=== PATIENT | male | born 1945 | race Caucasian/White ===

== ENCOUNTER 2017-09-09 10:07 | Day surgery (SDC) | payer OTHER, BC ==
[2017-09-04 13:32] VITALS: BMI 33.5
[2017-09-09] MEDS ORDERED: PROPOFOL 20 ML ONE (10:21)
[2017-09-09 11:49] VITALS: TEMP 97.6
[2017-09-09 12:12] VITALS: BP 137/65; PULSE 69
--- NOTE | 2017-09-10 18:02 | PATH ---
Surgical Pathology Report Patient Name: KESHA CHUN [facility]. Rec. #: [id number] /Age/Gender: 1945 (Age: 72) / M Account: [id number] Location: [facility] Taken: 09/09/2017 Received: 09/09/2017 Reported: 09/10/2017 Physicians: Tai Jimenes M.D. Specimen(s) Received A: BX CECUM B: SPLENIC FLEXURE C: RIGHT COLON Clinical History History of polyps Postoperative diagnosis: Polyps Final Diagnosis A. CECUM, BIOPSY: TUBULAR ADENOMA(S). B. COLON, SPLENIC FLEXURE, BIOPSY: TUBULAR ADENOMA. C. COLON, RIGHT, BIOPSY: TUBULAR ADENOMA. Electronically Signed Patti Dillon M.D. Gross Description A. Received in formalin, labeled "cecum" are 2 capellan, irregular portions of soft tissue measuring 0.2 and 0.6 cm. in greatest dimension. The specimens are submitted in toto in one cassette. B. Received in formalin, labeled "splenic flexure" is a capellan, irregular portion of soft tissue measuring 0.3 cm. in greatest dimension. The specimen is submitted in toto in one cassette. C. Received in formalin, labeled "right colon" is a capellan, polypoid portion of soft tissue measuring 0.7 cm. in greatest dimension. The specimen is submitted in toto in one cassette. 09/09/2017 saudi09/09/2017
== END 2017-09-09 12:15 | disposition home or self-care (01) ==
LOC: FASU-ENDO 10:07
PROVIDERS: ATTEND Internal Medicine Gastroenterology
PROC: 0DBL8ZX Excision of Transverse Colon, Via Natural or Artificial Opening Endoscopic, Diagnostic (ICD-10-PCS; 2017-09-09)
PROC: 0DBK8ZX Excision of Ascending Colon, Via Natural or Artificial Opening Endoscopic, Diagnostic (ICD-10-PCS; principal; 2017-09-09 11:11)
PROC: 0DBH8ZX Excision of Cecum, Via Natural or Artificial Opening Endoscopic, Diagnostic (ICD-10-PCS; 2017-09-09 11:11)
DX: Z12.11 Encounter for screening for malignant neoplasm of colon (principal); Z80.0 Family history of malignant neoplasm of digestive organs; D12.0 Benign neoplasm of cecum; D12.2 Benign neoplasm of ascending colon; D12.3 Benign neoplasm of transverse colon
CPT/HCPCS: 82962; 88305-TC

== ENCOUNTER 2018-04-24 18:02 | Inpatient (IN) | payer OTHER, BC ==
--- NOTE | 2018-04-24 18:28 | PDOC ---
History of Present Illness - General Chief Complaint: Weakness Stated Complaint: weakness in legs Time Seen by Provider: 04/24/18 18:10 History Source: Patient Exam Limitations: No Limitations - History of Present Illness Initial Comments: 72 yo M w a hx of DM, kidney stones s/p lithotripsy, neuropathy in LE > UE, HTN , waldenstrom macroglobulinemia, BPH presents to the ER with sudden onset bilateral leg weakness which he states began today and has been progressively getting worse for the past 3 hours. There was a point when he thought he could not possible move his legs or walk. He has a history of multiple spinal surgeries. He states his legs are both numb and he has lost a significant amount of feeling today. When he woke up this morning he states he was able to walk and feel his legs with significantly more ease than he is currently able to. Denies recent fevers, chills, infections, chest pain, SOB, difficulty breathing , headache, blurry vision, nausea, vomiting, dysuria, frequency, urgency, diarrhea, constipation. PSH: Multiple spinal surgeries, 5 years apart. Patient is unsure exactly which surgeries he had PCP: Dr. Rm Oncologist: Dr. Robison Neurologist: Dr. Kim Neuro-Surgeon: Dr. Hercules. Allergies: Cat dander Social Hx: Denies smoking, drinking or illicit substances. Past History - Past Medical History Allergies/Adverse Reactions: Allergies Allergy/AdvReac Type Severity Reaction Status Date / Time cat dander Allergy Intermediate Verified 04/24/18 18:19 No Known Drug Allergies Allergy Verified 04/24/18 18:19 Home Medications: Ambulatory Orders Aspirin [Aspir-Low] 81 mg PO HS tablet 10/21/13 Cholecalciferol (Vitamin D3) [Vitamin D3] 2,000 unit PO DAILY capsule 10/17/15 Famotidine 20 mg PO HS 09/04/17 Omeprazole 40 mg PO DAILY 09/04/17 Glipizide/Metformin HCl [Glipizide-Metformin 5-500 mg] 2.5 each PO BID 04/24/18 Lisinopril 20 mg PO BID 04/24/18 Metoprolol Succinate [Toprol Xl] 100 mg PO BID 04/24/18 Anemia: No Asthma: No Cancer: No Cardiac Disorders: No CVA: No COPD: No CHF: No Dementia: No Diabetes: Yes (2007) GI Disorders: No Disorders: Yes (ENLARGED PROSTATE) HTN: Yes Hypercholesterolemia: Yes Liver Disease: Yes Seizures: No Thyroid Disease: No - Surgical History Abdominal Surgery: No Appendectomy: No Cardiac Surgery: No Cholecystectomy: No Lung Surgery: No Neurologic Surgery: No Orthopedic Surgery: Yes (Cervical Discectomy,Laminectomy with Instrumentation) - Immunization History Td Vaccination: No (UNKNOWN) Immunization Up to Date: No - Suicide/Smoking/Psychosocial Hx Smoking Status: No Smoking History: Never smoked Have you smoked in the past 12 months: No Number of Cigarettes Smoked Daily: 0 Hx Alcohol Use: No Drug/Substance Use Hx: No Substance Use Type: None Hx Substance Use Treatment: No Review of Systems - Review of Systems Able to Perform ROS?: Yes Comments:: CONSTITUTIONAL: Absent: fever, no chills, no fatigue EYES: Absent: visual changes ENT: Absent: ear pain, no sore throat CARDIOVASCULAR: Absent: chest pain, no palpitations RESPIRATORY: Absent: cough, no SOB GI: Absent: abdominal pain, no nausea, no vomiting, no constipation, no diarrhea GENITOURINARY: Absent: dysuria, no frequency, no hematuria MUSKULOSKELETAL: Present: Back pain Absent: no arthralgia, no myalgia SKIN: Absent: rash NEURO: Absent: headache *Physical Exam - Physical Exam Comments: GENERAL: Well-appearing, well-nourished. No apparent distress. HEENT: Normocephalic, atraumatic. PERRL, EOM intact. CARDIOVASCULAR: Normal S1, S2. Regular rate and rhythm. PULMONARY: Clear to auscultation bilaterally. ABDOMEN: Soft, non-distended, non-tender. EXTREMITIES: Limited strength in bilateral lower extremities. Numbness in b/l lower legs. strength is 4/5 in both legs. Normal ROM in all upper extremities. No gross deformities. SKIN: Warm, dry. No rash NEUROLOGICAL: No focal neurological deficits. ED Treatment Course - LABORATORY CBC & Chemistry Diagram: 04/24/18 18:56 04/24/18 18:56 - RADIOLOGY Radiology Studies Ordered: Category Date Time Status LUMBAR SPINE MRI W/O CONTRAST [MRI] Stat MRI 04/24/18 18:23 Ordered Medical Decision Making - Medical Decision Making 72 yo M w a hx of DM, kidney stones s/p lithotripsy, neuropathy in LE > UE, HTN , waldenstrom macroglobulinemia, BPH presents to the ER with sudden onset bilateral leg weakness which he states began today and has been progressively getting worse for the past 3 hours. - oral fever elevated to 99.8 DDx IBNLT: Cauda equina, spinal epidural abscess, metastatic leasion compression spine, herniated disc, muscle sprain. Plan: Rectal temperature, labs, Spinal MRI, re-assess. - will give patient something to help him relax in the MRI machine because he gets claustrophobic. - Signing patient out to night team. *DC/Admit/Observation/Transfer Diagnosis at time of Disposition: Lower extremity weakness Qualifiers: Laterality: bilateral Qualified Code(s): R29.898 - Other symptoms and signs involving the musculoskeletal system - Referrals - Patient Instructions - Post Discharge Activity
--- NOTE | 2018-04-24 18:37 | PDOC ---
Attending Attestation - Resident Resident Name: Toi Almendarez - HPI HPI: 04/24/18 18:52 Pt presents to the Ed complaining of sudden onset bilateral leg weakness. STates that he was sitting in a chair and found himself unable to get up. Denies pain. Denies other complaints. states that weakness has improved somewhat but not resolved. Denies fever, bowel or bladder complaints. 04/26/18 18:31 - Physicial Exam PE: 04/26/18 18:33 Agree with resident exam. Patient is alert and oriented x 3 and in no acute distress. intact great toe extension, but decreased strength of his leg raise. Able to ambulate but with some difficultyl 04/26/18 18:34 - Medical Decision Making 04/26/18 18:34 PT presents to the ED complaining of sudden onset bilateral leg weakness. Strength is only slightly decreased on exam, but given his history and the history of malignancy, plan was for MRI of the lumbar spine to rule out cord compression. WIll reassess after MRI. 04/26/18 18:35
[2018-04-24] MEDS ORDERED: MIDAZOLAM HCL 2 MG/2 ML SINGLE DOSE VIAL IVPUSH ONE (19:06)
[2018-04-24 19:17] LABS: EOS % 0.2 % (0-4.5); MONO % 12.7 % (3.8-10.2); RBC 4.56 M/mm3 (4.00-5.60)
[2018-04-24 19:19] LABS: ACTIVATED PTT 25.3 SECONDS (25.2-36.5)
[2018-04-24 19:20] LABS: BASO % 0.2 % (0-2.0); HEMATOCRIT 41.3 % (35.4-49); HEMOGLOBIN 13.8 GM/dl (11.7-16.9); LYMPH % 3.6 % (8-40); MCH 30.3 pg (25.7-33.7); MCHC 33.4 g/dl (32.0-35.9); MEAN CELL VOLUME 90.6 fl (80-96); MEAN PLT VOLUME 8.8 fl (7.5-11.1); NEUT % 83.3 % (42.8-82.8); PLATELET COUNT 233 K/MM3 (134-434); RDW 12.5 % (11.9-15.9); WHITE BLOOD COUNT 10.6 K/mm3 (4.0-10.8)
[2018-04-24 19:21] LABS: ALBUMIN 3.4 g/dl (3.5-5.0); ALK PHOS 82 U/L (32-92); ANION GAP 5 MMOL/L (8-16); BILIRUBIN,TOTAL 0.8 mg/dl (0.2-1.0); BLOOD UREA NITROGEN 14 mg/dl (7-18); CALCIUM 8.6 mg/dl (8.4-10.2); CHLORIDE 106 mmol/L (98-107); CO2 22 mmol/L (22-28); CREATININE 0.9 mg/dl (0.6-1.3); GLUCOSE,RANDOM 231 mg/dl (74-106); POTASSIUM 3.9 mmol/L (3.5-5.1); SGOT/AST 28 U/L (10-42); SGPT/ALT 26 U/L (10-40); SODIUM 133 mmol/L (136-145); TOT PROT 6.7 g/dl (6.4-8.3)
[2018-04-24 19:23] LABS: INR 1.32 (0.82-1.09); PROTHROMBIN TIME (PATIENT) 14.7 SEC (10.2-13.0)
[2018-04-24] MEDS ORDERED: MIDAZOLAM HCL 2 MG/2 ML SINGLE DOSE VIAL ONE (19:41)
--- NOTE | 2018-04-24 19:48 | PDOC ---
*Physical Exam - Vital Signs Last Vital Signs Temp Pulse Resp BP Pulse Ox 99.8 F H 113 H 19 170/93 92 L 04/24/18 18:05 04/24/18 18:05 04/24/18 18:05 04/24/18 18:05 04/24/18 18:05 ED Treatment Course - LABORATORY CBC & Chemistry Diagram: 04/24/18 18:56 04/24/18 18:56 - ADDITIONAL ORDERS Additional order review: Laboratory Results 04/24/18 04/24/18 18:56 18:56 PT with INR 14.7 H INR 1.32 H PTT (Actin FS) 25.3 Sodium 133 L Potassium 3.9 Chloride 106 Carbon Dioxide 22 Anion Gap 5 L BUN 14 Creatinine 0.9 Creat Clearance w eGFR > 60 Random Glucose 231 H D Calcium 8.6 Total Bilirubin 0.8 AST 28 D ALT 26 D Alkaline Phosphatase 82 Total Protein 6.7 Albumin 3.4 L 04/24/18 18:56 RBC 4.56 MCV 90.6 MCHC 33.4 RDW 12.5 MPV 8.8 Neutrophils % 83.3 H Lymphocytes % 3.6 L D Monocytes % 12.7 H Eosinophils % 0.2 D Basophils % 0.2 Medical Decision Making - Medical Decision Making 04/24/18 23:31 Emergent MRI shows no evidence of cord compression or cauda equina. There is severe spinal stenosis at L23 above the level of fusion(L3-4) there is also circumferential disc bulge at L2-3 with a broad-based posterior disc component extending into the right neural outlet Patient denies pain at this time. He presented with complaints of bilateral lower extremity weakness; although it is difficult to demonstrate actual weakness on exam, the patient's ability to ambulate is currently severely compromised. Therefore, admission for further evaluation and treatment including gait training/physical therapy is required. Patient's PMD is [facility] regarding admission 04/25/18 00:12 Case discussed with . Patient admitted under observation status. 12-lead electrocardiogram performed and luminary interpretation: Sinus tachycardia 112 bpm; axis, intervals and wave forms are all normal. There are occasional PACs; otherwise no cardiac arrhythmia present. No evidence of acute ST or T-wave abnormalities. Portable chest x-ray reveals no evidence of infiltrates/effusion/masses *DC/Admit/Observation/Transfer Diagnosis at time of Disposition: Lower extremity weakness Qualifiers: Laterality: bilateral Qualified Code(s): R29.898 - Other symptoms and signs involving the musculoskeletal system - Discharge Dispostion Decision to Admit order: Yes - Referrals - Patient Instructions - Post Discharge Activity
[2018-04-24] MEDS ORDERED: LORazepam 1 MG TABLET PO ONE (19:49)
[2018-04-24] MEDS ORDERED: LORazepam 0.5 MG TABLET ONE (19:54)
[2018-04-24] MEDS ORDERED: LISINOPRIL 20 MG TABLET (FP) PO ONE (23:46)
[2018-04-24] MEDS ORDERED: LISINOPRIL 5 MG TABLET (FP) ONE (23:56)
[2018-04-25] MEDS ORDERED: ACETAMINOPHEN 325 MG TABLET (FP) PO ONE (00:48)
[2018-04-25 01:18] VITALS: BMI 36.2
[2018-04-25 01:59] LABS: URINE APPEARANCE CLEAR; URINE BILIRUBIN NEGATIVE (<2.0 mg/dL); URINE COLOR YELLOW; URINE GLUCOSE (UA) 1+ (NEGATIVE); URINE KETONE 1+ (NEGATIVE); URINE LEUK ESTERASE NEGATIVE (NEGATIVE); URINE NITRITE NEGATIVE (NEGATIVE); URINE PROTEIN 3+ (NEGATIVE); URINE UROBILINOGEN NEGATIVE mg/dL (0.2-1.0)
[2018-04-25 02:05] LABS: EPI CELLS RARE /HPF (FEW); URINE HYALINE CAST 1 /lpf; URINE MUCUS RARE
[2018-04-25] MEDS ORDERED: DEXAMETHASONE SOD PHOSPHATE 4 MG/1 ML VIAL IVPB ONE (02:40)
[2018-04-25] MEDS ORDERED: VANCOMYCIN 1 GRAM (PRE-DOCKED) 1,000 MG/250 ML BAG IVPB ONE (02:41)
[2018-04-25] MEDS ORDERED: PIPERACILLIN/TAZOB 3.375 GM 3.375 GM in DEXTROSE 5%-WATER - 50 ML IVPB ONE ×2 (02:41→11:00)
[2018-04-25] MEDS ORDERED: IBUPROFEN 400 MG TABLET (FP) PO PRN (02:42)
[2018-04-25] MEDS ORDERED: DEXTROSE 5%-WATER - 50 ML IVPB ONE ×2 (02:47→10:42)
[2018-04-25] MEDS ORDERED: PIPERACILLIN/TAZOBACTAM 3.375 GM VIAL IVPB ONE ×2 (02:47→10:41)
[2018-04-25] MEDS ORDERED: ACETAMINOPHEN 500 MG TABLET (FP) PO PRN (02:54)
[2018-04-25 07:55] LABS: HEMATOCRIT 39.6 % (35.4-49); HEMOGLOBIN 12.9 GM/dl (11.7-16.9); MCH 29.7 pg (25.7-33.7); MCHC 32.7 g/dl (32.0-35.9); MEAN CELL VOLUME 90.9 fl (80-96); MEAN PLT VOLUME 9.1 fl (7.5-11.1); PLATELET COUNT 212 K/MM3 (134-434); RBC 4.35 M/mm3 (4.00-5.60); WHITE BLOOD COUNT 7.6 K/mm3 (4.0-10.8)
[2018-04-25] MEDS ORDERED: SODIUM CHLORIDE 1,000 ML IV STA ×2 (08:00→08:34)
[2018-04-25 08:13] LABS: ANION GAP 10 MMOL/L (8-16); BLOOD UREA NITROGEN 16 mg/dl (7-18); CALCIUM 8.6 mg/dl (8.4-10.2); CHLORIDE 100 mmol/L (98-107); CO2 22 mmol/L (22-28); GLUCOSE,RANDOM 275 mg/dl (74-106); SODIUM 132 mmol/L (136-145)
--- NOTE | 2018-04-25 08:20 | HP ---
CHIEF COMPLAINT: Lower extremity weakness PCP: Dr. Rm Oncologist: Dr. Robison Neurologist: Dr. Kim Neuro-Surgeon: Dr. Hercules HISTORY OF PRESENT ILLNESS: 72 year-old male with a PMH signifiant for HTN, HLD, NIDDM, nephrolithiasis, BPH , b/l lower extremity neuropathy, and Waldenstrom's macroglobulinemia. Patient presented to the ED last night with a complaint of b/l lower extremity weakness so severe as he was unable to walk. Patient reports he started feeling unwell about 48 hours ago. On Saturday he was out with a friend and had an episode of feeling very warm and thought he might have a fever. He also started coughing and had a headache associated with the cough. On patient was able to do his errands in the morning. He came home and sat in his lounger chair for a time. When he went to get up he could not move his legs and he could not lift himself. He sat for a time and again tried to get up but could not. His helped him up and he had to hold on to furniture to ambulate. called EMS. Both and patient state this episode of profound weakness was very unusual. At baseline patient is able to walk unassisted although his neuropathy leads to some gait instability and imbalance. He drives a car. Patient denies incontinence of urine or stool. He denies nausea, vomiting, diarrhea. He denies dysuria although has frequency secondary to his BPH. ER course was notable for: (1) T 102.8, p 113 (2) CXR: prominent mediastinum (3) Dexamethasone 10mg x 1; lisinopril 20mg x 1; Toprol XL 100mg x 1; Vanc x 1; Zosyn x 1 Recent Travel: No PAST MEDICAL HISTORY: Hypertension Hyperlipidemia NIDDM Nephrolithiasis Enlarged prostate Neuropathy LE>UE Waldenstrom's macroglobulinemia PAST SURGICAL HISTORY: Cervical fusion, corpectomy, metallic cage C4, C5, C6, C7 (2005) Lumbar fusion with rods and screws L3, L4 (2011) Lithotripsy Social History: lives with Smoking: no Alcohol: no Drugs: no Family History: Allergies cat dander Allergy (Intermediate, Verified 04/24/18 18:19) No Known Drug Allergies Allergy (Verified 04/24/18 18:19) HOME MEDICATIONS: Home Medications Medication Instructions Recorded Aspirin [Aspir-Low] 81 mg PO HS tablet 10/21/13 Cholecalciferol (Vitamin D3) 2,000 unit PO DAILY capsule 10/17/15 [Vitamin D3] Famotidine 20 mg PO HS 09/04/17 Omeprazole 40 mg PO DAILY 09/04/17 Glipizide/Metformin HCl 2.5 each PO BID 04/24/18 [Glipizide-Metformin 5-500 mg] Lisinopril 20 mg PO BID 04/24/18 Metoprolol Succinate [Toprol Xl] 100 mg PO BID 04/24/18 REVIEW OF SYSTEMS CONSTITUTIONAL: +subjective fever Absent: chills, diaphoresis, generalized weakness, malaise, loss of appetite, weight change HEENT: Absent: rhinorrhea, nasal congestion, throat pain, throat swelling, difficulty swallowing, mouth swelling, ear pain, eye pain, visual changes CARDIOVASCULAR: Absent: chest pain, syncope, palpitations, irregular heart rate, lightheadedness , peripheral edema RESPIRATORY: +cough Absent: shortness of breath, dyspnea with exertion, orthopnea, wheezing, stridor , hemoptysis GASTROINTESTINAL: Absent: abdominal pain, abdominal distension, nausea, vomiting, diarrhea, constipation, melena, hematochezia GENITOURINARY: Absent: dysuria, frequency, urgency, hesitancy, hematuria, flank pain, genital pain MUSCULOSKELETAL: Absent: myalgia, arthralgia, joint swelling, back pain, neck pain SKIN: Absent: rash, itching, pallor HEMATOLOGIC/IMMUNOLOGIC: Absent: easy bleeding, easy bruising, lymphadenopathy, frequent infections ENDOCRINE: Absent: unexplained weight gain, unexplained weight loss, heat intolerance, cold intolerance NEUROLOGIC: +headache when coughing, b/l lower extremity weakness Absent: dizziness, unsteady gait, seizure, mental status changes, bladder or bowel incontinence PSYCHIATRIC: Absent: anxiety, depression, suicidal or homicidal ideation, hallucinations. PHYSICAL EXAMINATION Vital Signs - 24 hr 04/24/18 04/24/18 04/24/18 18:05 21:00 23:44 Temperature 99.8 F H 99.1 F Pulse Rate 113 H Pulse Rate [ 116 H Right Radial] Respiratory 19 22 H Rate Blood Pressure 170/93 Blood Pressure 164/94 [Left Arm] O2 Sat by Pulse 92 L 98 95 Oximetry (%) GENERAL: Awake, alert, and fully oriented, in no acute distress. HEAD: Normal with no signs of trauma. EYES: Pupils equal, round and reactive to light, extraocular movements intact, sclera anicteric, conjunctiva clear. No lid lag. EARS, NOSE, THROAT: Ears normal, nares patent, oropharynx clear without exudates. Dry mucous membranes LUNGS: Breath sounds equal, clear to auscultation bilaterally. No wheezes, and no crackles. No accessory muscle use. HEART: Regular rate and rhythm, S1 and S2 ABDOMEN: Obese soft, diffuse lower abdominal tenderness right and left, normoactive bowel sounds, no guarding, no rebound tenderness MUSCULOSKELETAL: No CVA tenderness. UPPER EXTREMITIES: 2+ pulses, warm, well-perfused. No cyanosis. No clubbing. No peripheral edema. LOWER EXTREMITIES: 2+ pulses, warm, well-perfused. No calf tenderness. No peripheral edema. 5/5 motor b/l LE, SLR 45 degress on left, 30 degrees on right ; 5/5 sensory bilaterally NEUROLOGICAL: Cranial nerves II-XII intact. Normal speech. Able to stand and walk few steps without assistance PSYCHIATRIC: Cooperative. Good eye contact. Appropriate mood and affect. SKIN: Warm, dry, normal turgor Laboratory Results - last 24 hr 04/24/18 04/24/18 04/24/18 18:56 18:56 18:56 WBC 10.6 RBC 4.56 Hgb 13.8 Hct 41.3 MCV 90.6 MCH 30.3 MCHC 33.4 RDW 12.5 Plt Count 233 MPV 8.8 Absolute Neuts (auto) 8.8 Neutrophils % 83.3 H Lymphocytes % 3.6 L D Monocytes % 12.7 H Eosinophils % 0.2 D Basophils % 0.2 PT with INR 14.7 H INR 1.32 H PTT (Actin FS) 25.3 Sodium 133 L Potassium 3.9 Chloride 106 Carbon Dioxide 22 Anion Gap 5 L BUN 14 Creatinine 0.9 Creat Clearance w eGFR > 60 Random Glucose 231 H D Calcium 8.6 Total Bilirubin 0.8 AST 28 D ALT 26 D Alkaline Phosphatase 82 Total Protein 6.7 Albumin 3.4 L Urine Color Urine Appearance Urine pH Ur Specific [place] Urine Protein Urine Glucose (UA) Urine Ketones Urine Blood Urine Nitrite Urine Bilirubin Urine Urobilinogen Ur Leukocyte Esterase Urine WBC (Auto) Urine RBC (Auto) Ur Epithelial Cells Hyaline Casts Urine Mucus 04/25/18 01:00 WBC RBC Hgb Hct MCV MCH MCHC RDW Plt Count MPV Absolute Neuts (auto) Neutrophils % Lymphocytes % Monocytes % Eosinophils % Basophils % PT with INR INR PTT (Actin FS) Sodium Potassium Chloride Carbon Dioxide Anion Gap BUN Creatinine Creat Clearance w eGFR Random Glucose Calcium Total Bilirubin AST ALT Alkaline Phosphatase Total Protein Albumin Urine Color Yellow Urine Appearance Clear Urine pH 5.0 Ur Specific [place] 1.024 Urine Protein 3+ H Urine Glucose (UA) 1+ H Urine Ketones 1+ H Urine Blood 2+ H Urine Nitrite Negative Urine Bilirubin Negative Urine Urobilinogen Negative Ur Leukocyte Esterase Negative Urine WBC (Auto) 1 Urine RBC (Auto) 1 Ur Epithelial Cells Rare Hyaline Casts 1 Urine Mucus Rare ASSESSMENT/PLAN 72 year-old male with a PMH significant for HTN, HLD, NIDDM, nephrolithiasis, BPH, b/l lower extremity neuropathy, and Waldenstrom's macroglobulinemia. Admitted with fever and LE weakness. Severe sepsis DASIA pneumonia --Tm 102.8, p 113, drop in BP >50 mmHg systolic over 4 hours --CT chest: DASIA patchy consolidation c/w pneumonia --fluid bolus 2L; maintain MAP>65 --vanc (day #1) and cefepime (day #1), Tamiflu (day #1) --cultures pending; flu swab pending --ID following Waldenstrom's macroglobulinemia --discussed with Dr. Robison; will get SPEP, quantitative immunoglobulins, LDH Bilateral lower extremity neuropathy --has some gait instability at baseline, but this episode of profound weakness is very unusual, has not experienced this since before his last back surgery --MRI lumbar spine: (1) L2-L3 moderate to marked DDD with mild broad-based disc bulge, possible slight impingement L2 nerve root; L4-L5 mild bilateral lateral disc bulge possible slight impingement L4 nerve root; L5-S1 disc bulge without definite impingement --MRI cervical spine ordered --neuro consult pending Hypertension --hypotensive, hold lisinopril and metoprolol Hyperlipidemia --continue atorvastatin NIDDM --Novolog sliding scale coverage Nephrolithiasis --no acute issues BPH --continue finasteride FEN Fluids: NS@100mL/hr Electrolytes: replete as indicated Nutrition: diabetic, low sodium DVT prophylaxis: subq heparin Physical therapy Dispo: continues to require inpatient care. Full code. Visit type - Emergency Visit Emergency Visit: Yes ED Registration Date: 04/24/18 Care time: The patient presented to the Emergency Department on the above date and was hospitalized for further evaluation of their emergent condition. - New Patient This patient is new to me today: Yes Date on this admission: 04/25/18 - Critical Care Critical Care patient: No
[2018-04-25] MEDS ORDERED: LISINOPRIL 20 MG TABLET (FP) PO SCH ×2 (10:00)
--- NOTE | 2018-04-25 10:54 | PN ---
Progress Note (short form) - Note Progress Note: ID CONSULT DICTATED
[2018-04-25 10:57] LABS: MAGNESIUM 1.5 mg/dL (1.8-2.4)
[2018-04-25] MEDS: HEPARIN NA (PORCINE) 5,000 UNITS/ML 1ML VIAL SQ SCH ×2 (10:58→21:23)
[2018-04-25] MEDS: CHOLECALCIFEROL (VITAMIN D3) 1,000 UNIT TABLET (FP) PO SCH (10:58)
[2018-04-25] MEDS: FINASTERIDE 5 MG TABLET (FP) PO SCH (10:59)
[2018-04-25] MEDS ORDERED: PIPERACILLIN/TAZOB 3.375 GM 3.375 GM in DEXTROSE 5%-WATER - 50 ML IVPB SCH ×2 (11:00→18:00)
[2018-04-25] MEDS: PANTOPRAZOLE 40 MG TABLET (FP) PO SCH (11:00)
[2018-04-25] MEDS ORDERED: CEFEPIME HCL/D5W 2 GM/50 ML BAG IVPB SCH (11:15)
--- NOTE | 2018-04-25 11:25 | CONS ---
DATE OF CONSULTATION: DATE OF DICTATION: 04/25/2018 HISTORY OF PRESENT ILLNESS: The patient is a 72-year-old male with a history of Waldenstrom's macroglobulinemia last treated in April of 2017 who was evaluated for fever. The patient has a history of peripheral neuropathy as well as spinal stenosis and disc disease. He was well until yesterday when he was unable to stand up from a seated position. He developed worsening weakness of the lower extremities to the point where he was unable to ambulate. He was taken to the emergency room where an MRI was performed. A preliminary reading shows no evidence of cord compression, but severe spinal stenosis at the level of L2-L2 and disc bulge at that level. He has had a cervical and lumbar laminectomy in the past. His hospital course was complicated by fever to 102.8. Cultures were obtained. He was empirically treated with antibiotics. He denies any recent febrile illness. No recent flu-like illness. No complaints of chest pain, shortness of breath, cough, or sputum production. No voiding difficulties. No dysuria or hematuria. No vomiting or diarrhea. No infected skin lesions. Patient has a history of Waldenstrom's macroglobulinemia and a history of peripheral neuropathy. He was last treated in April of 2017. Reports he has been in remission since that time. Patient reports receiving influenza vaccine. PAST MEDICAL HISTORY: Positive for Waldenstrom's macroglobulinemia, hypertension, diabetes mellitus, nephrolithiasis, peripheral neuropathy, BPH. PAST SURGICAL HISTORY: Status post lithotripsy, cervical laminectomy, and lumbar laminectomy. ALLERGIES: No known allergies. MEDICATIONS: Aspirin, Pepcid, omeprazole, glipizide, lisinopril, Toprol. SOCIAL HISTORY: He lives at home with his . No active tobacco or alcohol use. LABORATORY DATA: White count 7.6, 83 neutrophils, 3 lymphocytes, 12 monocytes, hematocrit 39.6, platelet count 212. Creatinine 1.0. Liver enzymes normal. Chest x-ray negative. SYSTEMS REVIEW: Neurologic: As per HPI. Cardiac: Negative for chest pain or palpitations. Respiratory: Negative for cough or sputum production. Gastrointestinal: Negative for vomiting or diarrhea. Genitourinary: Negative for urinary tract infection. PHYSICAL EXAMINATION: General: He is out of bed to chair. Patient is obese, in no acute distress. Vital signs: Temperature 102.8, blood pressure 102/59, pulse 82 and regular, respirations 18 per minute. HEENT: Sclerae anicteric. Oropharynx negative. Neck: Supple. No palpable nodes. Heart: Heart sounds S1, S2. Lungs: Clear. Abdomen: Obese, soft, nontender. Extremities: Positive for edema. IMPRESSION: 1. Fever, unclear source. Rule out viral syndrome, specifically acute influenza. 2. Rule out occult bacterial infection. 3. Exacerbation of lower extremity weakness, likely multifactorial (peripheral neuropathy, history of spinal stenosis and disc disease, and now fever). Case discussed with Neurology. Await cultures; obtain influenza swab; pending sepsis workup will empirically cover for bacterial infection with vancomycin and cefepime; neurology evaluation; oncology followup. Will follow. Thank you for the kind referral. JACOB CUNNINGHAM M.D. [id number]
[2018-04-25] MEDS: INSULIN (NOVOLOG) ASPART 100 UNITS/ML 10ML VIAL SQ SCH ×3 (11:57→21:24)
[2018-04-25] MEDS ORDERED: SODIUM CHLORIDE 1,000 ML IV SCH (15:15)
[2018-04-25] MEDS: VANCOMYCIN 1,250 MG in DEXTROSE 5%-WATER - 250 ML IVPB SCH (16:00)
[2018-04-25] MEDS ORDERED: VANCOMYCIN 1,500 MG in DEXTROSE 5%-WATER - 250 ML IVPB SCH (16:00)
[2018-04-25] MEDS ORDERED: OSELTAMIVIR PHOSPHATE 75 MG CAPSULE PO ONE (16:15)
--- NOTE | 2018-04-25 16:40 | CONSULT ---
Consult - text type - Consultation Consultation Note: Case discussed with Dr. Otoole this AM MRI of LS spine reviewed (prior to report): Moderately severe, diffuse spodylosis . S/P L4L5 laminectomies and decompression with well-placed pedicular screws. Moderate (5mm) retrolithiasis of L3 over L4 with moderate spinal stenosis. Mr. Rodriguez is well known to me over many years after presenting with cervical myelopathy requiring decompression. He was left with a chronic L C 7 radiculopathy and residual myelopathy with cervical myelomalacia and chronic imbalance. 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 Now admitted with increased leg weakness and temps to 102 without obvious source. Unfortunately, I am unable to examine the patient today. However, fevers would be expected to worsen BOTH his residual Cervical myelopathy as well as his peripheral neuropathy. As discussed with Dr. Otoole, I suggest: W/u of fevers and antibiotic coverage. Consider Lymphoma as a possible source of fevers. Update immunological studies, lily. IgM levels. Heme/Onc. consultation MRI of the cervical spine (C-, NB: Pt has normal Creatinine but is clearly Nephrotic) PT for gait and strengthening Neuro f/u as out patient (Dr. Pérez is covering me this weekend should any changes occur). Thank you very much, Chris Kim MD
[2018-04-25] MEDS ORDERED: CEFEPIME HCL 2 GM VIAL (RESTRICTED TO ID) ONE (18:03)
[2018-04-25] MEDS ORDERED: DEXTROSE 5%-WATER 100 ML IVPB ONE (18:04)
[2018-04-25] MEDS: CEFEPIME 2 GM in DEXTROSE 5%-WATER 100 ML IVPB SCH (18:58)
[2018-04-25] MEDS ORDERED: INSULIN (NOVOLOG) ASPART 100 UNITS/ML 10ML VIAL ONE (21:20)
[2018-04-25] MEDS: ATORVASTATIN CA 10 MG TABLET (FP) PO SCH (21:23)
[2018-04-25] MEDS: ASPIRIN COATED 81 MG TABLET.EC PO SCH (21:23)
[2018-04-25] MEDS: OSELTAMIVIR PHOSPHATE 75 MG CAPSULE PO SCH (21:24)
[2018-04-25] MEDS ORDERED: FAMOTIDINE 20 MG TABLET PO SCH (22:00)
[2018-04-26] MEDS ORDERED: CEFEPIME HCL 2 GM VIAL (RESTRICTED TO ID) ONE ×4 (02:13→23:59)
[2018-04-26] MEDS ORDERED: DEXTROSE 5%-WATER 100 ML IVPB ONE ×4 (02:14→23:59)
[2018-04-26] MEDS: CEFEPIME 2 GM in DEXTROSE 5%-WATER 100 ML IVPB SCH ×3 (02:18→18:55)
[2018-04-26] MEDS: VANCOMYCIN 1,250 MG in DEXTROSE 5%-WATER - 250 ML IVPB SCH ×2 (03:54→16:53)
[2018-04-26] MEDS ORDERED: PATIENT'S OWN MEDICATION (NON-FORMULARY) (Simvastatin [Simvastatin] 40 MG) PO SCH (07:00)
[2018-04-26] MEDS ORDERED: INSULIN (NOVOLOG) ASPART 100 UNITS/ML 10ML VIAL ONE (07:55)
[2018-04-26] MEDS: INSULIN (NOVOLOG) ASPART 100 UNITS/ML 10ML VIAL SQ SCH ×4 (07:58→21:31)
[2018-04-26 08:06] LABS: IGA IMMUNOGLOBULIN 333 mg/dL (61-437); IGG IMMUNOGLOBULIN 238 mg/dL (700-1600); IGM IMMUNOGLOBULIN 1083 mg/dL (15-143)
[2018-04-26 08:19] LABS: BASO % 0.3 % (0-2.0); EOS % 0.2 % (0-4.5); HEMATOCRIT 36.7 % (35.4-49); HEMOGLOBIN 12.3 GM/dl (11.7-16.9); LYMPH % 17.8 % (8-40); MCH 30.5 pg (25.7-33.7); MCHC 33.6 g/dl (32.0-35.9); MEAN PLT VOLUME 8.6 fl (7.5-11.1); MONO % 17.4 % (3.8-10.2); NEUT % 64.3 % (42.8-82.8); PLATELET COUNT 228 K/MM3 (134-434); RBC 4.03 M/mm3 (4.00-5.60); RDW 12.9 % (11.9-15.9); WHITE BLOOD COUNT 8.9 K/mm3 (4.0-10.8)
[2018-04-26 08:36] LABS: ALBUMIN 2.8 g/dl (3.5-5.0); ALK PHOS 64 U/L (32-92); ANION GAP 9 MMOL/L (8-16); BILIRUBIN,TOTAL 0.5 mg/dl (0.2-1.0); BLOOD UREA NITROGEN 17 mg/dl (7-18); CALCIUM 8.2 mg/dl (8.4-10.2); CHLORIDE 103 mmol/L (98-107); CO2 22 mmol/L (22-28); GLUCOSE,RANDOM 160 mg/dl (74-106); MAGNESIUM 1.7 mg/dL (1.8-2.4); POTASSIUM 3.6 mmol/L (3.5-5.1); SGOT/AST 39 U/L (10-42); SGPT/ALT 27 U/L (10-40); SODIUM 134 mmol/L (136-145); TOT PROT 5.9 g/dl (6.4-8.3)
[2018-04-26] MEDS: OSELTAMIVIR PHOSPHATE 75 MG CAPSULE PO SCH ×2 (10:00→21:30)
[2018-04-26] MEDS: FINASTERIDE 5 MG TABLET (FP) PO SCH (10:00)
[2018-04-26] MEDS: PANTOPRAZOLE 40 MG TABLET (FP) PO SCH (10:00)
[2018-04-26] MEDS: HEPARIN NA (PORCINE) 5,000 UNITS/ML 1ML VIAL SQ SCH ×2 (10:00→21:30)
[2018-04-26] MEDS: CHOLECALCIFEROL (VITAMIN D3) 1,000 UNIT TABLET (FP) PO SCH (10:00)
--- NOTE | 2018-04-26 11:20 | PN ---
Physical Exam: SUBJECTIVE: Patient seen and examined oob to chair. Sitting comfortably, legs crossed. OBJECTIVE: Vital Signs Period Temp Pulse Resp BP Sys/Ponce Pulse Ox Last 24 Hr 98.3 F-99.5 F 66-85 16-19 109-145/54-87 93-96 GENERAL: Awake, alert, and fully oriented, in no acute distress. LUNGS: Breath sounds equal, clear to auscultation bilaterally. No wheezes, and no crackles. No accessory muscle use. HEART: Regular rate and rhythm, S1 and S2 ABDOMEN: Obese soft, not tender, MUSCULOSKELETAL: No CVA tenderness. UPPER EXTREMITIES: 2+ pulses, warm, well-perfused. No cyanosis. No clubbing. No peripheral edema. LOWER EXTREMITIES: 2+ pulses, warm, well-perfused. No calf tenderness. No peripheral edema. 5/5 motor b/l LE, SLR 45 degress on left, 30 degrees on right ; 5/5 sensory bilaterally NEUROLOGICAL: Cranial nerves II-XII intact. Normal speech. Able to walk without assistance. PSYCHIATRIC: Cooperative. Good eye contact. Appropriate mood and affect. SKIN: Warm, dry, normal turgor Laboratory Results - last 24 hr 04/25/18 04/25/18 04/25/18 10:15 10:15 10:15 WBC RBC Hgb Hct MCV MCH MCHC RDW Plt Count MPV Absolute Neuts (auto) Neutrophils % Lymphocytes % Monocytes % Eosinophils % Basophils % Sodium Potassium Chloride Carbon Dioxide Anion Gap BUN Creatinine Creat Clearance w eGFR POC Glucometer Random Glucose Hemoglobin A1c % 7.5 H Lactic Acid 2.0 Calcium Phosphorus Magnesium Total Bilirubin AST ALT Alkaline Phosphatase C-Reactive Protein 9.1 H Total Protein Albumin IgG IgA IgM Influenza A (Rapid) Influenza B (Rapid) 04/25/18 04/25/18 04/25/18 11:44 12:26 14:40 WBC RBC Hgb Hct MCV MCH MCHC RDW Plt Count MPV Absolute Neuts (auto) Neutrophils % Lymphocytes % Monocytes % Eosinophils % Basophils % Sodium Potassium Chloride Carbon Dioxide Anion Gap BUN Creatinine Creat Clearance w eGFR POC Glucometer 317 Random Glucose Hemoglobin A1c % Lactic Acid Calcium Phosphorus Magnesium Total Bilirubin AST ALT Alkaline Phosphatase C-Reactive Protein Total Protein Albumin IgG 238 L IgA 333 IgM 1083 H Influenza A (Rapid) Positive A Influenza B (Rapid) Negative 04/25/18 04/25/18 04/26/18 16:49 21:14 06:33 WBC RBC Hgb Hct MCV MCH MCHC RDW Plt Count MPV Absolute Neuts (auto) Neutrophils % Lymphocytes % Monocytes % Eosinophils % Basophils % Sodium Potassium Chloride Carbon Dioxide Anion Gap BUN Creatinine Creat Clearance w eGFR POC Glucometer 199 174 160 Random Glucose Hemoglobin A1c % Lactic Acid Calcium Phosphorus Magnesium Total Bilirubin AST ALT Alkaline Phosphatase C-Reactive Protein Total Protein Albumin IgG IgA IgM Influenza A (Rapid) Influenza B (Rapid) 04/26/18 04/26/18 07:43 07:43 WBC 8.9 RBC 4.03 Hgb 12.3 Hct 36.7 MCV 91.0 MCH 30.5 MCHC 33.6 RDW 12.9 Plt Count 228 MPV 8.6 Absolute Neuts (auto) 5.8 Neutrophils % 64.3 D Lymphocytes % 17.8 D Monocytes % 17.4 H Eosinophils % 0.2 Basophils % 0.3 Sodium 134 L Potassium 3.6 Chloride 103 Carbon Dioxide 22 Anion Gap 9 BUN 17 Creatinine 1.0 Creat Clearance w eGFR > 60 POC Glucometer Random Glucose 160 H D Hemoglobin A1c % Lactic Acid Calcium 8.2 L Phosphorus 3.0 Magnesium 1.7 L Total Bilirubin 0.5 AST 39 D ALT 27 Alkaline Phosphatase 64 D C-Reactive Protein Total Protein 5.9 L Albumin 2.8 L IgG IgA IgM Influenza A (Rapid) Influenza B (Rapid) Active Medications Generic Name Dose Route Start Last Admin Trade Name Freq PRN Reason Stop Dose Admin Acetaminophen 500 mg 04/25/18 02:54 04/25/18 11:00 Tylenol - PO 500 mg Q4H PRN Administration PAIN LEVEL 1-5 OR FEVER Aspirin 81 mg 04/25/18 22:00 04/25/18 21:23 Ecotrin - PO 81 mg HS RENATA Administration Atorvastatin Calcium 10 mg 04/25/18 22:00 04/25/18 21:23 Lipitor - PO 10 mg HS RENATA Administration Cholecalciferol 2,000 unit 04/25/18 10:00 04/26/18 10:00 Vitamin D3 - PO 2,000 unit DAILY RENATA Administration Finasteride 5 mg 04/25/18 10:00 04/26/18 10:00 Proscar - PO 5 mg DAILY RENATA Administration Heparin Sodium (Porcine) 5,000 unit 04/25/18 10:00 04/26/18 10:00 Heparin - SQ 5,000 unit BID RENATA Administration Vancomycin HCl 1,250 mg/ 250 mls @ 166.667 mls/hr 04/25/18 16:00 04/26/18 03: 54 Dextrose IVPB 166.667 mls/hr Q12H RENATA Administration Protocol Cefepime HCl 2 gm/ Dextrose 100 mls @ 200 mls/hr 04/25/18 18:00 04/26/18 10: 00 IVPB 200 mls/hr Q8H-IV RENATA Administration Protocol Sodium Chloride 1,000 mls @ 100 mls/hr 04/25/18 15:15 04/25/18 18:02 Normal Saline - IV 100 mls/hr ASDIR RENATA Administration Insulin Aspart 0 units 04/25/18 11:00 04/26/18 07:58 Novolog Vial SQ 2 unit ACHS RENATA Administration Protocol Lisinopril 20 mg 04/25/18 10:00 04/25/18 10:59 Prinivil PO Not Given DAILY RENATA Oseltamivir Phosphate 75 mg 04/25/18 22:00 04/26/18 10:00 Tamiflu - PO 04/30/18 21:59 75 mg BID RENATA Administration Pantoprazole Sodium 40 mg 04/25/18 10:00 04/26/18 10:00 Protonix - PO 40 mg DAILY RENATA Administration ASSESSMENT/PLAN 72 year-old male with a PMH significant for HTN, HLD, NIDDM, nephrolithiasis, BPH, b/l lower extremity neuropathy, and Waldenstrom's macroglobulinemia. Admitted with fever and LE weakness. Severe sepsis, resolved DASIA pneumonia Influenza A --afebrile 24 hours, no leukocytosis, BP stable --CT chest: DASIA patchy consolidation c/w pneumonia --Influenza A (+) --vanc (day #2) and cefepime (day #2), Tamiflu (day #2) --ID following Waldenstrom's macroglobulinemia and IgA MGUS --seen and evaluated by Dr. Robison, clinically stable in terms of NHL; IgM is elevated but stable compared to recent values Bilateral lower extremity neuropathy --has some gait instability at baseline, but this episode of profound weakness is very unusual, has not experienced this since before his last back surgery --MRI lumbar spine: (1) L2-L3 moderate to marked DDD with mild broad-based disc bulge, possible slight impingement L2 nerve root; L4-L5 mild bilateral lateral disc bulge possible slight impingement L4 nerve root; L5-S1 disc bulge without definite impingement --MRI cervical spine was ordered but canceled; patient's walking is back to baseline; he requires sedation for MRI and given his respiratory status, better course is to defer to outpatient setting/open MRI which patient prefers --neuro following Hypertension --resume home lisinopril and metoprolol Hyperlipidemia --continue atorvastatin NIDDM --Novolog sliding scale coverage Nephrolithiasis --no acute issues BPH --continue finasteride FEN Fluids: PO intake adequate Electrolytes: replete as indicated Nutrition: diabetic, low sodium DVT prophylaxis: subq heparin Physical therapy Dispo: continues to require inpatient care. Full code. Visit type - Emergency Visit Emergency Visit: Yes ED Registration Date: 04/24/18 Care time: The patient presented to the Emergency Department on the above date and was hospitalized for further evaluation of their emergent condition. - New Patient This patient is new to me today: No - Critical Care Critical Care patient: No
[2018-04-26] MEDS ORDERED: diazePAM CARPU-JECT 10 MG/2 ML DISP.SYRIN IVPUSH ONE ×2 (12:31→12:45)
[2018-04-26] MEDS: LISINOPRIL 20 MG TABLET (FP) PO SCH ×2 (12:56→21:30)
--- NOTE | 2018-04-26 12:57 | EKG ---
Test Reason : Blood Pressure : / mmHG Vent. Rate : 112 BPM Atrial Rate : 112 BPM P-R Int : 172 ms QRS Dur : 086 ms QT Int : 314 ms P-R-T Axes : 086 -08 058 degrees QTc Int : 428 ms SINUS TACHYCARDIA WITH PREMATURE ATRIAL COMPLEXES OTHERWISE NORMAL ECG NO PREVIOUS ECGS AVAILABLE Confirmed by MD LEON, TAVIA ([id number]) on 04/26/2018 12:57:02 PM Referred By: MD VARGAS Confirmed By:TAVIA QUINTERO MD
--- NOTE | 2018-04-26 13:11 | CONSULT ---
Consult Consult Specialty:: hematol-onc Referred by:: Ziyad Gallo Reason for Consultation:: NHL - History of Present Illness Chief Complaint: weakness History of Present Illness: 72 yom well-known to me w h/o Waldenstrom's Macroglobulinemia and IgA MGUS; amyloid non-detected on bm bx. [place] to have IgM-assoc CIDP along w myelopathy, spinal surgeries foll'd by Dr Kim many years In terms of the NHL, he has not had LA or cytopenias or recurrent infxns or hyperviscosity. Has rec'd trial of rituxan 6 mos completed 1 yr ago. Has subsequent minor clin response, and essentially stable w chronic LE weakness. We are monitoring off tx. Adm now in setting of influenza, lingular pna. Had flu shot. Reports feeling back to baseline - History Source History Provided By: Patient, Medical Record Limitations to Obtaining History: No Limitations - Past Medical History Pulmonary: Yes: Bronchitis Heme/Onc: Yes: Other (WM, IgA MGUS) - Past Surgical History Additional Surgical History: spinal surgeries - Alcohol/Substance Use Hx Alcohol Use: No - Smoking History Smoking history: Never smoked Have you smoked in the past 12 months: No Aproximately how many cigarettes per day: 0 - Social History Usual Living Arrangement: With Spouse Home Medications - Allergies Allergies/Adverse Reactions: Allergies Allergy/AdvReac Type Severity Reaction Status Date / Time cat dander Allergy Intermediate Verified 04/24/18 18:19 No Known Drug Allergies Allergy Verified 04/24/18 18:19 - Home Medications Home Medications: Ambulatory Orders Aspirin [Aspir-Low] 81 mg PO HS tablet 10/21/13 Cholecalciferol (Vitamin D3) [Vitamin D3] 2,000 unit PO DAILY capsule 10/17/15 Famotidine 20 mg PO HS 09/04/17 Omeprazole 40 mg PO DAILY 09/04/17 Glipizide/Metformin HCl [Glipizide-Metformin 5-500 mg] 2.5 each PO BID 04/24/18 Lisinopril 20 mg PO BID 04/24/18 Metoprolol Succinate [Toprol Xl] 100 mg PO BID 04/24/18 Review of Systems - Review of Systems Constitutional: reports: Weakness Respiratory: reports: Cough Physical Exam Vital Signs: Vital Signs Temperature 98.3 F 04/26/18 10:17 Pulse Rate 85 04/26/18 10:17 Respiratory Rate 19 01/05/19 10:17 Blood Pressure 145/75 04/26/18 10:17 O2 Sat by Pulse Oximetry (%) 95 04/26/18 10:17 Constitutional: Yes: No Distress, Calm Eyes: Yes: WNL HENT: Yes: WNL Neck: Yes: Supple Cardiovascular: Yes: Regular Rate and Rhythm Respiratory: Yes: CTA Bilaterally Gastrointestinal: Yes: Normal Bowel Sounds, Soft, Abdomen, Obese Extremities: Yes: WNL Edema: No Labs: CBC, BMP 04/26/18 07:43 04/26/18 07:43 Assessment/Plan influenza, L pna; bkd NHL Clin improving w tamiflu, abx CT w/o LA Appears clin stable in terms of NHL He will f/u in office as scheduled Maintain f/u w Dr Kim d/w team
[2018-04-26] MEDS ORDERED: ONDANSETRON 4 MG/2 ML VIAL IVPUSH PRN (14:29)
[2018-04-26] MEDS: ALBUTEROL SO4 2.5/IPRATROPIUM 0.5 INH SOL 3 ML VIAL.NEB. NEB SCH ×2 (15:59→20:16)
[2018-04-26] MEDS: ATORVASTATIN CA 10 MG TABLET (FP) PO SCH (21:30)
[2018-04-26] MEDS: ASPIRIN COATED 81 MG TABLET.EC PO SCH (21:30)
[2018-04-27] MEDS: CEFEPIME 2 GM in DEXTROSE 5%-WATER 100 ML IVPB SCH ×2 (01:16→09:45)
[2018-04-27] MEDS: VANCOMYCIN 1,250 MG in DEXTROSE 5%-WATER - 250 ML IVPB SCH (05:44)
[2018-04-27] MEDS: INSULIN (NOVOLOG) ASPART 100 UNITS/ML 10ML VIAL SQ SCH ×2 (08:52→11:22)
[2018-04-27] MEDS: ALBUTEROL SO4 2.5/IPRATROPIUM 0.5 INH SOL 3 ML VIAL.NEB. NEB SCH ×2 (08:53→13:27)
[2018-04-27] MEDS ORDERED: DEXTROSE 5%-WATER 100 ML IVPB ONE (09:12)
[2018-04-27] MEDS ORDERED: CEFEPIME HCL 2 GM VIAL (RESTRICTED TO ID) ONE (09:12)
[2018-04-27 09:43] VITALS: BP 167/76; PULSE 69; TEMP 99.4
[2018-04-27] MEDS: CHOLECALCIFEROL (VITAMIN D3) 1,000 UNIT TABLET (FP) PO SCH (09:45)
[2018-04-27] MEDS: LISINOPRIL 20 MG TABLET (FP) PO SCH (09:45)
[2018-04-27] MEDS: OSELTAMIVIR PHOSPHATE 75 MG CAPSULE PO SCH (09:45)
[2018-04-27] MEDS: PANTOPRAZOLE 40 MG TABLET (FP) PO SCH (09:45)
[2018-04-27 09:46] LABS: HEMATOCRIT 36.7 % (35.4-49); HEMOGLOBIN 12.3 GM/dl (11.7-16.9); MCH 30.3 pg (25.7-33.7); MCHC 33.5 g/dl (32.0-35.9); MEAN CELL VOLUME 90.6 fl (80-96); MEAN PLT VOLUME 9.1 fl (7.5-11.1); PLATELET COUNT 244 K/MM3 (134-434); RBC 4.05 M/mm3 (4.00-5.60); RDW 12.6 % (11.9-15.9); WHITE BLOOD COUNT 7.2 K/mm3 (4.0-10.8)
[2018-04-27] MEDS: HEPARIN NA (PORCINE) 5,000 UNITS/ML 1ML VIAL SQ SCH (09:46)
[2018-04-27] MEDS: FINASTERIDE 5 MG TABLET (FP) PO SCH (09:46)
[2018-04-27 09:47] LABS: BASO % 0.3 % (0-2.0); EOS % 1.4 % (0-4.5); LYMPH % 21.1 % (8-40); NEUT % 59.2 % (42.8-82.8)
--- NOTE | 2018-04-27 10:14 | PN ---
Progress Note, Physician History of Present Illness: OOB in chair + dry cough No c/o chest pain/ dyspnea Better strength in LE Temps down Afebrile WBC WNL BC (-) Urine c/s (-) - Current Medication List Current Medications: Active Medications Acetaminophen (Tylenol -) 500 mg PO Q4H PRN PRN Reason: PAIN LEVEL 1-5 OR FEVER Last Admin: 04/25/18 11:00 Dose: 500 mg Albuterol/Ipratropium (Duoneb -) 1 amp NEB RTID [facility] Last Admin: 04/27/18 08:53 Dose: 1 amp Aspirin (Ecotrin -) 81 mg PO HS [facility] Last Admin: 04/26/18 21:30 Dose: 81 mg Atorvastatin Calcium (Lipitor -) 10 mg PO HS [facility] Last Admin: 04/26/18 21:30 Dose: 10 mg Cholecalciferol (Vitamin D3 -) 2,000 unit PO DAILY [facility] Last Admin: 04/27/18 09:45 Dose: 2,000 unit Finasteride (Proscar -) 5 mg PO DAILY [facility] Last Admin: 04/27/18 09:46 Dose: 5 mg Heparin Sodium (Porcine) (Heparin -) 5,000 unit SQ BID [facility] Last Admin: 04/27/18 09:46 Dose: 5,000 unit Vancomycin HCl 1,250 mg/ (Dextrose) 250 mls @ 166.667 mls/hr IVPB Q12H [facility]; Protocol Last Admin: 04/27/18 05:44 Dose: 166.667 mls/hr Cefepime HCl 2 gm/ Dextrose 100 mls @ 200 mls/hr IVPB Q8H-IV RENATA; Protocol Last Admin: 04/27/18 09:45 Dose: 200 mls/hr Insulin Aspart (Novolog Vial) 0 units SQ ACHS [facility]; Protocol Last Admin: 04/27/18 08:52 Dose: 2 units Lisinopril (Prinivil) 20 mg PO BID [facility] Last Admin: 04/27/18 09:45 Dose: 20 mg Metoprolol Succinate (Toprol Xl -) 100 mg PO DAILY [facility] Last Admin: 04/27/18 09:45 Dose: 100 mg Ondansetron HCl (Zofran Injection) 4 mg IVPUSH Q6H PRN PRN Reason: NAUSEA Last Admin: 04/26/18 14:34 Dose: 4 mg Oseltamivir Phosphate (Tamiflu -) 75 mg PO BID [facility] Stop: 04/30/18 21:59 Last Admin: 04/27/18 09:45 Dose: 75 mg Pantoprazole Sodium (Protonix -) 40 mg PO DAILY [facility] Last Admin: 04/27/18 09:45 Dose: 40 mg - Objective Vital Signs: Vital Signs Temperature 99.4 F 04/27/18 09:42 Pulse Rate 69 04/27/18 09:42 Respiratory Rate 04/27/18 09:42 Blood Pressure 167/76 04/27/18 09:42 O2 Sat by Pulse Oximetry (%) 92 L 04/27/18 09:42 Constitutional: Yes: Obese Cardiovascular: Yes: Regular Rate and Rhythm, S1, S2 Respiratory: Yes: CTA Bilaterally Gastrointestinal: Yes: Normal Bowel Sounds, Soft, Abdomen, Obese. No: Tenderness Labs: CBC, BMP 04/27/18 08:00 INR, PTT INR 1.32 (0.82-1.09) H 04/24/18 18:56 Assessment/Plan Acute influenza A ? DASIA pneumonia Acute exacerbation, LE weakness- multifactorial WM D/C antibiotics Complete 5d course of Tamiflu Switch to po levaquin x 7d Outpatient neuro/ hem-onc follow up
[2018-04-27 11:00] LABS: ALBUMIN 2.8 g/dl (3.5-5.0); ANION GAP 13 MMOL/L (8-16); BILIRUBIN,TOTAL 0.4 mg/dl (0.2-1.0); BLOOD UREA NITROGEN 16 mg/dl (7-18); CALCIUM 8.3 mg/dl (8.4-10.2); CHLORIDE 103 mmol/L (98-107); CO2 21 mmol/L (22-28); CREATININE 0.8 mg/dl (0.6-1.3); GLUCOSE,RANDOM 155 mg/dl (74-106); POTASSIUM 3.7 mmol/L (3.5-5.1); SGOT/AST 42 U/L (10-42); SODIUM 137 mmol/L (136-145); TOT PROT 5.8 g/dl (6.4-8.3)
[2018-04-27 11:01] LABS: ALK PHOS 64 U/L (32-92); SGPT/ALT 37 U/L (10-40)
--- NOTE | 2018-04-27 12:01 | DS ---
Physical Exam: SUBJECTIVE: Patient seen and examined, denies sob, chest pain, OBJECTIVE: Vital Signs Period Temp Pulse Resp BP Sys/Ponce Pulse Ox Last 24 Hr 98.4 F-99.4 F 69-83 18-19 140-167/68-80 92-95 PHYSICAL EXAM GENERAL: The patient is awake, alert, and fully oriented, in no acute distress. HEAD: Normal with no signs of trauma. EYES: PERRL, extraocular movements intact, sclera anicteric, conjunctiva clear. ENT: Ears normal, nares patent, oropharynx clear without exudates, moist mucous membranes. NECK: Trachea midline, full range of motion, supple. LUNGS: Breath sounds equal, clear to auscultation bilaterally, no wheezes, no crackles, no accessory muscle use. HEART: Regular rate and rhythm, S1, S2 without murmur, rub or gallop. ABDOMEN: Soft, nontender, nondistended, normoactive bowel sounds, no guarding, no rebound, no hepatosplenomegaly, no masses. EXTREMITIES: 2+ pulses, warm, well-perfused, no edema. NEUROLOGICAL: Cranial nerves II through XII grossly intact. Normal speech, gait not observed. PSYCH: Normal mood, normal affect. SKIN: Warm, dry, normal turgor, no rashes or lesions noted. LABS Laboratory Results - last 24 hr 04/26/18 04/26/18 04/26/18 07:43 11:26 16:06 WBC RBC Hgb Hct MCV MCH MCHC RDW Plt Count MPV Absolute Neuts (auto) Neutrophils % Lymphocytes % Monocytes % Eosinophils % Basophils % Sodium Potassium Chloride Carbon Dioxide Anion Gap BUN Creatinine Creat Clearance w eGFR POC Glucometer 222 191 Random Glucose Calcium Magnesium Total Bilirubin AST ALT Alkaline Phosphatase Total Protein Albumin IgG 219 L 04/26/18 04/27/18 04/27/18 20:50 06:29 08:00 WBC RBC Hgb Hct MCV MCH MCHC RDW Plt Count MPV Absolute Neuts (auto) Neutrophils % Lymphocytes % Monocytes % Eosinophils % Basophils % Sodium 137 Potassium 3.7 Chloride 103 Carbon Dioxide 21 L Anion Gap 13 BUN 16 Creatinine 0.8 Creat Clearance w eGFR > 60 POC Glucometer 194 176 Random Glucose 155 H Calcium 8.3 L Magnesium Total Bilirubin 0.4 AST 42 ALT 37 D Alkaline Phosphatase 64 Total Protein 5.8 L Albumin 2.8 L IgG 04/27/18 04/27/18 08:00 08:00 WBC 7.2 RBC 4.05 Hgb 12.3 Hct 36.7 MCV 90.6 MCH 30.3 MCHC 33.5 RDW 12.6 Plt Count 244 MPV 9.1 Absolute Neuts (auto) 4.3 Neutrophils % 59.2 Lymphocytes % 21.1 Monocytes % 18.0 H Eosinophils % 1.4 D Basophils % 0.3 Sodium Potassium Chloride Carbon Dioxide Anion Gap BUN Creatinine Creat Clearance w eGFR POC Glucometer Random Glucose Calcium Magnesium 1.9 Total Bilirubin AST ALT Alkaline Phosphatase Total Protein Albumin IgG HOSPITAL COURSE: Date of Admission:04/24/18 Date of Discharge: 04/27/18 72 year-old male with a PMH significant for HTN, HLD, NIDDM, nephrolithiasis, BPH, b/l lower extremity neuropathy, and Waldenstrom's macroglobulinemia. Admitted with fever and LE weakness. Severe sepsis, resolved DASIA pneumonia Influenza A --afebrile 24 hours, no leukocytosis, BP stable --CT chest: DASIA patchy consolidation c/w pneumonia --Influenza A (+) -switched to PO Levaquin to complete 7 days course, Tamiflu 5 days (meds sent to [facility]) --ID signed off, pt medically stable for DC Waldenstrom's macroglobulinemia and IgA MGUS --seen and evaluated by Dr. Robison, clinically stable in terms of NHL; IgM is elevated but stable compared to recent values --follow up as outpatient Bilateral lower extremity neuropathy --has some gait instability at baseline, but this episode of profound weakness is very unusual, has not experienced this since before his last back surgery --MRI lumbar spine: (1) L2-L3 moderate to marked DDD with mild broad-based disc bulge, possible slight impingement L2 nerve root; L4-L5 mild bilateral lateral disc bulge possible slight impingement L4 nerve root; L5-S1 disc bulge without definite impingement --MRI cervical spine was ordered but canceled; patient's walking is back to baseline; he requires sedation for MRI and given his respiratory status, better course is to defer to outpatient setting/open MRI which patient prefers Hypertension --resume home lisinopril and metoprolol Hyperlipidemia --continue atorvastatin NIDDM --Novolog sliding scale coverage Nephrolithiasis --no acute issues BPH --continue finasteride Minutes to complete discharge: 30 Discharge Summary Reason For Visit: weakness in legs Current Active Problems Lower extremity weakness (Acute) Condition: Good - Instructions Diet, Activity, Other Instructions: Diet: low sodium/diabetic diet Follow up with PCP 1 week follow up with Neuro, Hematology as scheduled Referrals: Vincent Rm MD [Primary Care Provider] - Hollie Robison MD [Staff Physician] - Chris Kim MD [Staff Physician] - Disposition: HOME - Home Medications Comprehensive Discharge Medication List: Ambulatory Orders Aspirin [Aspir-Low] 81 mg PO HS tablet 10/21/13 Cholecalciferol (Vitamin D3) [Vitamin D3] 2,000 unit PO DAILY capsule 10/17/15 Famotidine 20 mg PO HS 09/04/17 Omeprazole 40 mg PO DAILY 09/04/17 Glipizide/Metformin HCl [Glipizide-Metformin 5-500 mg] 2.5 each PO BID 04/24/18 Lisinopril 20 mg PO BID 04/24/18 Metoprolol Succinate [Toprol Xl] 100 mg PO BID 04/24/18 Oseltamivir Phosphate [Tamiflu -] 75 mg PO BID 3 Days #6 capsule 04/27/18 levoFLOXacin [Levaquin -] 500 mg PO DAILY 6 Days #6 tablet 04/27/18 This patient is new to me today: Yes Date on this admission: 04/27/18 Emergency Visit: Yes ED Registration Date: 04/24/18 Care time: The patient presented to the Emergency Department on the above date and was hospitalized for further evaluation of their emergent condition. Critical Care patient: No - Discharge Referral Referred to [facility] Med P.C.: No
[2018-04-30 12:54] LABS: IGA IMMUNOGLOBULIN 311; IGM IMMUNOGLOBULIN 1074
== END 2018-04-27 13:40 | disposition home or self-care (01) | DRG 871 ==
LOC: FER 18:02 → FM/S 23:45 → UNDOADMIN 23:52 → FM/S 23:52
PROVIDERS: ADMIT Internal Medicine; ATTEND Nurse Practitioner Acute Care
DX: A41.9 Sepsis, unspecified organism (principal); J18.9 Pneumonia, unspecified organism; I10 Essential (primary) hypertension; N40.0 Benign prostatic hyperplasia without lower urinary tract symptoms; Z79.84 Long term (current) use of oral hypoglycemic drugs; E78.5 Hyperlipidemia, unspecified; C88.0 Waldenstrom macroglobulinemia; E11.40 Type 2 diabetes mellitus with diabetic neuropathy, unspecified; E11.42 Type 2 diabetes mellitus with diabetic polyneuropathy; J11.1 Influenza due to unidentified influenza virus with other respiratory manifestations; E66.9 Obesity, unspecified; Z68.36 Body mass index [BMI] 36.0-36.9, adult
CPT/HCPCS: 36415; 71045-TC-FY; 71260-TC; 72148-TC; 74177-TC; 80048; 80053; 81003; 81015; 82784; 82962; 83036; 83605; 83615; 83735; 84100; 84155; 84165; 85025; 85027; 85610; 85651; 85730; 86140; 87040; 87086; 87804; 87899; 93005; 94640; 99283-25; G0480; J1644; J7030

== ENCOUNTER 2020-01-21 14:55 | Emergency (ER) | payer OTHER, BC ==
[2020-01-21 15:21] VITALS: BP 140/78; PULSE 82; TEMP 99.2; BMI 35.9
--- NOTE | 2020-01-21 15:25 | PDOC ---
History of Present Illness - General Chief Complaint: Weakness Stated Complaint: WEAKNESS Time Seen by Provider: 01/21/20 15:02 History Source: Patient Exam Limitations: No Limitations - History of Present Illness Initial Comments: 01/21/20 15:20 74 male h/o waldenstroms , htn, chf, mulitple spinal surgeries here today after fall, was unable to stand due to weaknesss. 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 was eventually able to crawl, and yelled to who found him on the floor. unsure of how he fell, was walking out of garage and garage door came down caught his arm and he fell. unsure how he landed exactly thinks hands and knees, but denies loc or head trauma. has noted mild right leg weakness. pt states he has seen Dr Sandoval in the past for nueropathy, has had similar falls in past where he was weak and unable to get up. no f/c no cp. did feel sob when he was trying to stand but now feels his breathing is fine. Past History - Medical History Allergies/Adverse Reactions: Allergies Allergy/AdvReac Type Severity Reaction Status Date / Time cat dander Allergy Intermediate Verified 04/24/18 18:19 No Known Drug Allergies Allergy Verified 04/24/18 18:19 Home Medications: Ambulatory Orders Aspirin [Aspir-Low] 81 mg PO HS tablet 10/21/13 Cholecalciferol (Vitamin D3) [Vitamin D3] 2,000 unit PO DAILY capsule 10/17/15 Famotidine 20 mg PO HS 09/04/17 Lisinopril 20 mg PO BID 04/24/18 Metoprolol Succinate [Toprol Xl] 100 mg PO BID 04/24/18 Dorzolamide HCl/Timolol Maleat [Cosopt Eye Drops] 1 drop OU HS 01/21/20 Glipizide 5 mg PO BID 01/21/20 Metformin HCl [Glucophage] 1,000 mg PO BID 01/21/20 [place]-3/Dha/Epa/Fish Oil [Fish Oil 1,000 mg Softgel] 1 each PO DAILY 01/21/20 Oxybutynin Chloride 5 mg PO HS 01/21/20 Anemia: No Asthma: No Cancer: No Cardiac Disorders: No CVA: No COPD: No CHF: No Dementia: No Diabetes: Yes (2007) GI Disorders: No Disorders: Yes (ENLARGED PROSTATE) HTN: Yes Hypercholesterolemia: Yes Liver Disease: Yes Seizures: No Thyroid Disease: No - Surgical History Abdominal Surgery: No Appendectomy: No Cardiac Surgery: No Cholecystectomy: No Lung Surgery: No Neurologic Surgery: No Orthopedic Surgery: Yes (Cervical Discectomy,Laminectomy with Instrumentation) - Immunization History Td Vaccination: No (UNKNOWN) Immunization Up to Date: No - Psycho-Social/Smoking History Smoking Status: No Smoking History: Never smoked Have you smoked in the past 12 months: No Number of Cigarettes Smoked Daily: 0 Review of Systems - Review of Systems Constitutional: No: Chills, Diaphoresis HEENTM: No: Eye Pain Respiratory: Yes: Shortness of Breath. No: Cough, Orthopnea Cardiac (ROS): No: Chest Pain, Edema : No: Burning, Dysuria, Discharge Musculoskeletal: Yes: Muscle Weakness. No: Back Pain Integumentary: Yes: Other (abrasion). No: Bruising, Change in Color, Erythema Neurological: Yes: Unsteady Gait All Other Systems: Reviewed and Negative *Physical Exam - Physical Exam 01/21/20 15:24 awake alert lungs clear bilat heart rrr no mrg abd soft nt nd ext wwp. bilat nonpitting periph edema. 2+ dp/ pt pulses. skin with abrasion bilat fourth toes, right elbow. all superficial. joints from. nuerological alert oriented x 3. 5/5 bilat upper ext. lower ext mild 4+/5 weakness right leg, mild drift does not hit bed on NIH stoke scale testing. no facial paresis. speech clear. no dysarthria. CN intact. Heart Score/ECG Review #1 General ECG Interpretation: Sinus Rhythm, Normal Rate (75), Normal Intervals, No acute ischemic changes ED Treatment Course - LABORATORY CBC & Chemistry Diagram: 01/21/20 15:30 01/21/20 15:22 - RADIOLOGY Radiology Studies Ordered: Category Date Time Status HEAD CT WITHOUT CONTRAST [CT] Stat CT Scan 01/21/20 15:14 Ordered Medical Decision Making - Medical Decision Making 01/21/20 15:25 74 yo male s/p fall, now with weakness, unable to ambulate and stand from fall. differential cva, mi, infection such as uti, electrolyte abnormality, denies s yncope. spinal issues causing chronic weakness leg. plan ct head. labs cxr ekg. pt rubin crystal require admission as he was unable to stand following his fall. 01/21/20 17:08 pt states his right leg weakness is marah old for years. has chronically elevated wbc due to waldenstroms states 14 is near his recent baseline. cxr negative. ua negative for infection. . was supposed to see dr sandoval few weeks ago. office too crowded. 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 pt ambulating without difficulty. would like to go home. ct head unremarkable. other labs normal. 01/21/20 17:14 called to d/w dr rm. will see as soon as possible or pt can be seen by Dr Claudio or Hilary. 01/21/20 17:16 Discharge - Discharge Information Problems reviewed: Yes Clinical Impression/Diagnosis: Fall, Abrasion Condition: Improved Disposition: HOME - Admission No - Follow up/Referral Referrals: Vincent Rm MD [Primary Care Provider] - Hollie Robison MD [Staff Physician] - Chris Sandoval MD [Staff Physician] - - Patient Discharge Instructions Patient Printed Discharge Instructions: DI for Abrasion, DI for Muscle Weakness Additional Instructions: you should follow up with DR Sandoval within one week. call to schedule. you should also follow up wtih dr Rm or Dr Weathers, call to schedule to be seen within one week. return for any weakness, numbness or tingling or any concerns. your labs are noted for elevated WBC 14, which is your baseline. you should also follow up with DR Robison, call to schedule. - Post Discharge Activity
[2020-01-21 15:54] LABS: BASO % 0.8 % (0-2.0); EOS % 1.6 % (0-4.5); HEMATOCRIT 41.5 % (35.4-49); HEMOGLOBIN 14.4 GM/dl (11.7-16.9); LYMPH % 10.6 % (8-40); MCH 32.7 pg (25.7-33.7); MCHC 34.7 g/dl (32.0-35.9); MEAN CELL VOLUME 94.2 fl (80-96); MEAN PLT VOLUME 8.3 fl (7.5-11.1); MONO % 7.8 % (3.8-10.2); NEUT % 79.2 % (42.8-82.8); PLATELET COUNT 332 K/MM3 (134-434); RBC 4.41 M/mm3 (4.00-5.60); RDW 12.8 % (11.9-15.9); WHITE BLOOD COUNT 14.1 K/mm3 (4.0-10.8)
[2020-01-21 16:09] LABS: ALBUMIN 3.5 g/dl (3.4-5.0); CALCIUM 9.2 mg/dl (8.5-10); POTASSIUM 4.3 mmol/L (3.5-5.1); TOT PROT 6.8 g/dl (6.4-8.2)
--- NOTE | 2020-01-22 10:27 | EKG ---
Test Reason : Blood Pressure : / mmHG Vent. Rate : 075 BPM Atrial Rate : 075 BPM P-R Int : 184 ms QRS Dur : 090 ms QT Int : 392 ms P-R-T Axes : 033 -11 059 degrees QTc Int : 437 ms NORMAL SINUS RHYTHM NONSPECIFIC ST ABNORMALITY POOR R WAVE PROGRESSION CANNOT RULE OUT INFERIOR INFARCT , AGE UNDETERMINED Confirmed by JACOB PIZARRO MD ([id number]) on 01/22/2020 10:27:25 AM Referred By: DR LINARES Confirmed By:JACOB PIZARRO MD
== END 2020-01-21 17:24 | disposition home or self-care (01) ==
LOC: FER 14:55
DX: S50.311A Abrasion of right elbow, initial encounter (principal)
CPT/HCPCS: 36415; 70450-TC; 71045-TC-FY; 80053; 81003; 81015; 84484; 85025; 93005; 99285-25

== ENCOUNTER 2020-08-05 06:25 | Emergency (ER) | payer OTHER, BC ==
[2020-08-05 06:34] VITALS: PULSE 80; TEMP 98.9; BMI 35.9
[2020-08-05] MEDS ORDERED: KETOROLAC TROMETHAMINE 60 MG/2 ML VIAL IM ONE (06:44)
[2020-08-05] MEDS ORDERED: KETOROLAC TROMETHAMINE 30 MG/1 ML VIAL IVPUSH ONE (06:46)
[2020-08-05] MEDS ORDERED: KETOROLAC TROMETHAMINE 30 MG/1 ML VIAL ONE (06:47)
[2020-08-05] MEDS: SODIUM CHLORIDE 1,000 ML ONE ×2 (06:52→07:05)
[2020-08-05 06:59] LABS: BASO % 1.1 % (0-2.0); EOS % 2.6 % (0-4.5); HEMATOCRIT 44.2 % (35.4-49); HEMOGLOBIN 14.9 GM/dl (11.7-16.9); LYMPH % 19.5 % (8-40); MCH 31.9 pg (25.7-33.7); MCHC 33.8 g/dl (32.0-35.9); MEAN CELL VOLUME 94.6 fl (80-96); MONO % 13.9 % (3.8-10.2); NEUT % 62.9 % (42.8-82.8); PLATELET COUNT 329 K/MM3 (134-434); RBC 4.68 M/mm3 (4.00-5.60); RDW 13.1 % (11.9-15.9); WHITE BLOOD COUNT 9.7 K/mm3 (4.0-10.8)
[2020-08-05 07:17] LABS: ALBUMIN 3.6 g/dl (3.4-5.0); BILIRUBIN,TOTAL 0.9 mg/dl (0.2-1); CALCIUM 9.3 mg/dl (8.5-10); TOT PROT 7.1 g/dl (6.4-8.2)
[2020-08-05 09:51] VITALS: BP 140/86
== END 2020-08-05 09:09 | disposition home or self-care (01) ==
LOC: FER 06:25
PROC: 3E0333Z Introduction of Anti-inflammatory into Peripheral Vein, Percutaneous Approach (ICD-10-PCS; principal; 2020-08-05)
PROC: 3E0337Z Introduction of Electrolytic and Water Balance Substance into Peripheral Vein, Percutaneous Approach (ICD-10-PCS; 2020-08-05)
DX: R10.9 Unspecified abdominal pain (principal); N20.0 Calculus of kidney; N28.89 Other specified disorders of kidney and ureter
CPT/HCPCS: 36415; 74176-TC; 80053; 81003; 81015; 85025; 99284-25

== ENCOUNTER 2020-12-19 07:18 | Day surgery (SDC) | payer OTHER, BC ==
[2020-12-13 16:43] VITALS: BMI 31.5
[2020-12-19] MEDS: CIPROFLOXACIN 0.3% EYE DROPS 5 ML BOTTLE ONE ×3 (08:40→08:50)
[2020-12-19] MEDS: CYCLOPENTOLATE 2% OPHTH SOLN 2 ML BOTTLE ONE ×3 (08:40→08:50)
[2020-12-19] MEDS: PHENYLEPHRINE 2.5% OPHTH SOLN 15 ML BOTTLE ONE ×3 (08:40→08:50)
[2020-12-19] MEDS: TROPICAMIDE 1% OPHTH SOLN 15 ML BOTTLE ONE ×3 (08:40→08:50)
[2020-12-19 08:49] VITALS: TEMP 98.3
[2020-12-19] MEDS ORDERED: CARBACHOL 0.01% INTRA-OCULAR 1.5 ML VIAL ONE (09:18)
[2020-12-19] MEDS ORDERED: TETRACAINE 0.5% OPHTH SOLN 2 ML BOTTLE ONE (09:18)
[2020-12-19] MEDS ORDERED: BSS (NA/CA/MG/K) BALANCED SALT SOLUTION OPHTH SOLN 15 ML BOTTLE ONE (09:18)
[2020-12-19] MEDS ORDERED: NEO/POLYMYX B SULF/DEXAMETH OPHTHALMIC 5ML BOTTLE ONE (09:19)
[2020-12-19] MEDS ORDERED: MIDAZOLAM HCL 2 MG/2 ML SINGLE DOSE VIAL ONE (09:37)
[2020-12-19 11:16] VITALS: BP 133/73; PULSE 66
== END 2020-12-19 11:00 | disposition home or self-care (01) ==
LOC: FASU 07:18
PROVIDERS: ATTEND Ophthalmology
PROC: 08RJ3JZ Replacement of Right Lens with Synthetic Substitute, Percutaneous Approach (ICD-10-PCS; principal; 2020-12-19 09:43)
DX: H26.8 Other specified cataract (principal)
CPT/HCPCS: 82962

== ENCOUNTER 2021-01-18 08:25 | Day surgery (SDC) | payer OTHER, BC ==
[2021-01-13 09:10] VITALS: BMI 31.5
[2021-01-18] MEDS: CIPROFLOXACIN 0.3% EYE DROPS 5 ML BOTTLE ONE ×3 (09:00→09:10)
[2021-01-18] MEDS: TROPICAMIDE 1% OPHTH SOLN 15 ML BOTTLE ONE ×3 (09:00→09:10)
[2021-01-18] MEDS: PHENYLEPHRINE 2.5% OPHTH SOLN 15 ML BOTTLE ONE ×3 (09:00→09:10)
[2021-01-18] MEDS: CYCLOPENTOLATE 2% OPHTH SOLN 2 ML BOTTLE ONE ×3 (09:00→09:10)
[2021-01-18] MEDS ORDERED: PHENYLEPHRINE/KETOROLAC 4 ML VIAL IO ONE (10:44)
[2021-01-18] MEDS ORDERED: MIDAZOLAM HCL 2 MG/2 ML SINGLE DOSE VIAL ONE (10:57)
[2021-01-18 12:03] VITALS: TEMP 97.6
[2021-01-18 12:10] VITALS: BP 162/81; PULSE 68
== END 2021-01-18 12:10 | disposition home or self-care (01) ==
LOC: FASU 08:25
PROVIDERS: ATTEND Ophthalmology
PROC: 08RK3JZ Replacement of Left Lens with Synthetic Substitute, Percutaneous Approach (ICD-10-PCS; principal; 2021-01-18 11:02)
DX: H26.8 Other specified cataract (principal)
CPT/HCPCS: 82962; J1097

== ENCOUNTER 2021-06-08 07:29 | Day surgery (SDC) | payer OTHER, BC ==
[2021-06-07 12:49] VITALS: BMI 31.5
[2021-06-08] MEDS ORDERED: LIDOCAINE HCL/PF 2% SDV 5ML VIAL ONE (07:54)
[2021-06-08] MEDS ORDERED: PROPOFOL 20 ML ONE ×4 (07:54)
[2021-06-08] MEDS ORDERED: GLYCOPYRROLATE 0.2 MG/1 ML VIAL ONE (08:00)
[2021-06-08 08:35] VITALS: TEMP 97
[2021-06-08 09:05] VITALS: BP 128/65; PULSE 77
== END 2021-06-08 09:07 | disposition home or self-care (01) ==
LOC: FASU-ENDO 07:29
PROVIDERS: ATTEND Internal Medicine Gastroenterology
PROC: 0DB68ZX Excision of Stomach, Via Natural or Artificial Opening Endoscopic, Diagnostic (ICD-10-PCS; 2021-06-08)
PROC: 0DB98ZX Excision of Duodenum, Via Natural or Artificial Opening Endoscopic, Diagnostic (ICD-10-PCS; principal; 2021-06-08 08:14)
DX: K29.50 Unspecified chronic gastritis without bleeding (principal); R13.10 Dysphagia, unspecified
CPT/HCPCS: 82962; 88305-TC; 88342-TC

== ENCOUNTER 2022-10-01 11:02 | Day surgery (SDC) | payer OTHER, BC ==
[2022-09-27 12:32] VITALS: BMI 33.5
[2022-10-01 11:37] VITALS: RESP 18
[2022-10-01 13:15] VITALS: TEMP 97.5
[2022-10-01 13:33] VITALS: BP 130/60; PULSE 68
== END 2022-10-01 13:40 | disposition home or self-care (01) ==
LOC: FASU-ENDO 11:02
PROVIDERS: ATTEND Internal Medicine Gastroenterology
PROC: 0DBL8ZX Excision of Transverse Colon, Via Natural or Artificial Opening Endoscopic, Diagnostic (ICD-10-PCS; 2022-10-01)
PROC: 0DBM8ZX Excision of Descending Colon, Via Natural or Artificial Opening Endoscopic, Diagnostic (ICD-10-PCS; 2022-10-01)
PROC: 0DBN8ZX Excision of Sigmoid Colon, Via Natural or Artificial Opening Endoscopic, Diagnostic (ICD-10-PCS; 2022-10-01)
PROC: 0DBK8ZX Excision of Ascending Colon, Via Natural or Artificial Opening Endoscopic, Diagnostic (ICD-10-PCS; principal; 2022-10-01 12:26)
DX: Z12.11 Encounter for screening for malignant neoplasm of colon (principal); D12.2 Benign neoplasm of ascending colon; D12.3 Benign neoplasm of transverse colon; D12.4 Benign neoplasm of descending colon; K63.5 Polyp of colon; Z86.010 Personal history of colon polyps; Z80.0 Family history of malignant neoplasm of digestive organs
CPT/HCPCS: 82962; 88305-TC

== ENCOUNTER 2024-05-12 18:51 | Inpatient (IN) | payer OTHER, BC ==
[2024-05-12 19:36] LABS: HEMATOCRIT 38.5 % (35.4-49); MCH 32.4 pg (25.7-33.7); MCHC 33.7 g/dl (32.0-35.9); MEAN PLT VOLUME 8.8 fl (7.5-11.1); RBC 4.01 10^6/uL (4.00-5.60); RDW 13.8 % (11.9-15.9); WHITE BLOOD COUNT 27.9 10^3/uL (4.0-10.8)
[2024-05-12] MEDS: SODIUM CHLORIDE 1,000 ML IV ONE (19:42)
[2024-05-12 19:54] LABS: ALBUMIN 3.1 g/dl (3.4-5.0); BILIRUBIN,TOTAL 0.7 mg/dl (0.2-1); CREATININE 1.2 mg/dl (0.6-1.3); PHOSPHOROUS 3.1 (2.5-4.9); POTASSIUM 3.8 mmol/L (3.5-5.1); TOT PROT 5.4 g/dl (6.4-8.2)
[2024-05-12 19:55] LABS: PLATELET ESTIMATE ADEQUATE
[2024-05-12 20:17] LABS: VENOUS BASE EXCESS 1.1 mmol/L (-2-2); VENOUS O2 SATURATION 93.1 % (70-80); VENOUS PH 7.416 (7.310-7.410)
[2024-05-12] MEDS ORDERED: PIPERACILLIN/TAZOBACTAM 4.5 GM VIAL IVPB ONE (20:18)
[2024-05-12] MEDS: PIPERACILLIN/TAZOB 4.5 GM 4.5 GM in DEXTROSE 5%-WATER 100 ML IVPB ONE (20:26)
[2024-05-12] MEDS ORDERED: ACETAMINOPHEN 325 MG TABLET (FP) PO PRN (21:20)
[2024-05-12] MEDS ORDERED: VANCOMYCIN 1,000 MG VIAL (RESTRICTED TO ID ONLY) ONE (21:27)
[2024-05-12 22:01] LABS: N-TERMINAL BNP 7398.3 pg/ml (5-450)
[2024-05-12] MEDS: VANCOMYCIN 1,000 MG in DEXTROSE 5%-WATER - 250 ML IVPB ONE (22:38)
[2024-05-12] MEDS: ALBUTEROL SO4 2.5/IPRATROPIUM 0.5 INH SOL 3 ML VIAL.NEB. NEB SCH (22:39)
[2024-05-12] MEDS: INSULIN ASPART SLIDING SCALE (NOVOLOG) 1 VIAL SQ SCH (22:43)
[2024-05-13] MEDS ORDERED: MAGNESIUM HYDROX 2400MG/30ML ORAL SUSPENSION 30 ML CUP PO PRN (01:50)
[2024-05-13] MEDS: PIPERACILLIN/TAZOB 4.5 GM 4.5 GM in DEXTROSE 5%-WATER 100 ML IVPB SCH (02:28)
[2024-05-13] MEDS: FUROSEMIDE 40 MG/4 ML INJECTABLE VIAL IVPUSH ONE ×3 (02:30→12:17)
[2024-05-13 03:53] LABS: VENOUS BASE EXCESS -3.2 mmol/L (-2-2); VENOUS O2 SATURATION 92.3 % (70-80); VENOUS PCO2 35.1 mmHg (38-52); VENOUS PH 7.396 (7.310-7.410)
[2024-05-13 04:16] LABS: POTASSIUM 3.5 mmol/L (3.5-5.1)
[2024-05-13 04:20] LABS: CALCIUM 8.7 mg/dL (8.5-10.1)
[2024-05-13 04:22] LABS: CREATININE 1.1 mg/dL (0.55-1.3)
[2024-05-13 08:13] LABS: INR 1.24 (0.83-1.09)
[2024-05-13 08:16] LABS: ACTIVATED PTT 27.1 SECONDS (25.2-36.5)
[2024-05-13 09:30] LABS: HEMATOCRIT 36.3 % (35.4-49); HEMOGLOBIN 12.1 GM/dL (11.7-16.9); MCH 31.4 pg (25.7-33.7); MCHC 33.4 g/dl (32.0-35.9); MEAN CELL VOLUME 94.1 fl (80-96); MEAN PLT VOLUME 8.9 fl (7.5-11.1); PLATELET COUNT 396 10^3/uL (134-434); RBC 3.86 M/mm3 (4.00-5.60); RDW 13.9 % (11.9-15.9); WHITE BLOOD COUNT 21.9 K/mm3 (4.0-10.0)
[2024-05-13] MEDS: SERTRALINE HCL 50 MG TABLET (FP) PO SCH (09:53)
[2024-05-13] MEDS: amLODIPine BESYLATE 10 MG TABLET (FP) PO SCH (09:53)
[2024-05-13] MEDS: ENOXAPARIN NA (PORCINE) 40 MG/0.4 ML DISP.SYRIN SQ SCH (09:53)
[2024-05-13] MEDS: CEFTRIAXONE 1 GM in DEXTROSE 5%-WATER - 50 ML IVPB SCH (09:53)
[2024-05-13] MEDS: CARVEDILOL 12.5 MG TABLET (FP) PO SCH (09:53)
[2024-05-13] MEDS: valACYclovir HCL 500 MG TABLET (FP) PO SCH (09:53)
[2024-05-13] MEDS: FAMOTIDINE 20 MG TABLET PO SCH (09:54)
[2024-05-13] MEDS ORDERED: VANCOMYCIN/WATER 1250 MG 1,250 MG/250 ML BAG IVPB ONE (10:00)
[2024-05-13 10:29] LABS: ANISOCYTOSIS 0; MACROCYTOSIS 0
[2024-05-13] MEDS: AZITHROMYCIN IVPB 500 MG/250 ML BAG IVPB ONE (12:16)
[2024-05-13] MEDS: PATIENT'S OWN MEDICATION (NON-FORMULARY) (Zanubrutinib [Brukinsa] 80 MG Capsule) PO SCH (13:47)
[2024-05-13] MEDS ORDERED: DOXAZOSIN MESYLATE 2 MG TABLET PO SCH (22:00)
[2024-05-13] MEDS: DOXAZOSIN MESYLATE 1 MG TABLET PO SCH (22:12)
[2024-05-13] MEDS: ATORVASTATIN CA 40 MG TABLET (FP) PO SCH (22:12)
[2024-05-13] MEDS: LATANOPROST 0.005% OPHTH SOLN 2.5ML BOTTLE OU SCH (22:19)
[2024-05-14 07:41] LABS: HEMATOCRIT 39.6 % (35.4-49); HEMOGLOBIN 12.9 G/dL (11.7-16.9); MCH 31.4 pg (25.7-33.7); MCHC 32.4 g/dl (32.0-35.9); MEAN CELL VOLUME 96.9 fl (80-96); MEAN PLT VOLUME 9.4 fl (7.5-11.1); PLATELET COUNT 378.1 10^3/uL (134-434); RBC 4.09 10^6/uL (4.00-5.60); RDW 13.8 % (11.9-15.9); WHITE BLOOD COUNT 19.5 10^3/uL (4.0-10.8)
[2024-05-14 08:06] LABS: ALBUMIN 2.9 g/dl (3.4-5.0); BILIRUBIN,TOTAL 0.6 mg/dl (0.2-1); CALCIUM 8.8 mg/dl (8.5-10.1); CREATININE 1.1 mg/dl (0.6-1.3); MAGNESIUM 1.9 mg/dL (1.8-2.4); PHOSPHOROUS 3.7 (2.5-4.9); POTASSIUM 3.7 mmol/L (3.5-5.1); TOT PROT 5.2 g/dl (6.4-8.2)
[2024-05-14] MEDS: guaiFENesin/D-METHORPHAN TAB.ER.12H PO SCH (10:57)
[2024-05-14] MEDS: AZITHROMYCIN IVPB 250 MG in DEXTROSE 5%-WATER - 250 ML IVPB SCH (11:09)
[2024-05-14] MEDS: PIPERACILLIN/TAZOB 4.5 GM 4.5 GM in DEXTROSE 5%-WATER 100 ML IVPB SCH (19:43)
[2024-05-15 08:13] LABS: CALCIUM 8.7 mg/dl (8.5-10.1); POTASSIUM 3.4 mmol/L (3.5-5.1)
[2024-05-15 09:37] LABS: HEMATOCRIT 38.1 % (35.4-49); MCH 31.9 pg (25.7-33.7); MEAN CELL VOLUME 93.8 fl (80-96); PLATELET COUNT 361 10^3/uL (134-434); RBC 4.07 M/mm3 (4.00-5.60); RDW 13.6 % (11.9-15.9); WHITE BLOOD COUNT 18.2 K/mm3 (4.0-10.0)
[2024-05-15 10:35] LABS: ANISOCYTOSIS 0; MACROCYTOSIS 0
[2024-05-15] MEDS: POTASSIUM CHLORIDE ORAL LIQUID 20 MEQ/15 ML PO ONE (11:00)
[2024-05-15] MEDS: APIXABAN 5 MG TABLET PO SCH (11:00)
[2024-05-15] MEDS: CARVEDILOL 25 MG TABLET (FP) PO SCH (11:00)
[2024-05-15] MEDS ORDERED: LACTATED RINGERS SOLUTION 1,000 ML/1,000 ML INFUS.BAG IV SCH (16:00)
[2024-05-15] MEDS: FLUTICASONE PROP 0.05% 16 GM NASAL SPRAY NS SCH (23:43)
[2024-05-16 09:16] VITALS: RESP 18
[2024-05-16] MEDS: POLYETHYLENE GLYCOL (HEALTHYLAX) 3350 17 GM PACKET PO SCH (10:35)
[2024-05-16] MEDS: DOCUSATE SODIUM 100 MG CAPSULE (FP) PO PRN (10:36)
[2024-05-16 12:49] VITALS: BP 138/68; PULSE 82; TEMP 98.2
== END 2024-05-16 13:51 | DRG 195 ==
LOC: FER 18:51 → OBSVTOIN 21:23 → FM/S 21:23
PROVIDERS: ADMIT Internal Medicine; ATTEND Internal Medicine
DX: J11.00 Influenza due to unidentified influenza virus with unspecified type of pneumonia (principal); E11.40 Type 2 diabetes mellitus with diabetic neuropathy, unspecified; I10 Essential (primary) hypertension; E11.65 Type 2 diabetes mellitus with hyperglycemia; E78.5 Hyperlipidemia, unspecified; C88.00 Waldenstrom macroglobulinemia not having achieved remission; D72.829 Elevated white blood cell count, unspecified; R00.0 Tachycardia, unspecified; I48.91 Unspecified atrial fibrillation
CPT/HCPCS: 0241U-QW; 36415; 70450-TC; 71045-TC-FY; 80048; 80053; 81003; 81015; 82550; 82803; 82962; 83605; 83735; 83880; 84100; 84484; 85025; 85027; 85610; 85730; 87086; 93005; 93306-TC; 94640; 97116-GP; 97162-GP; 99285-25